=== PATIENT | male | born 1965 | race Caucasian/White ===

== ENCOUNTER → 2016-12-02 06:50 | Day surgery (SDC) | payer OTHER ==
--- NOTE | 2016-11-21 19:30 | HP ---
PREOPERATIVE HISTORY AND PHYSICAL: DATE OF ADMISSION: 12/02/16 [facility] CHIEF COMPLAINT: Right forefoot pain. HISTORY OF PRESENT ILLNESS: Mr. Robledo is a 51-year-old gentleman followed by Dr. Juarez for ongoing pain in his right first MTP joint. He previously underwent cheilectomy by a station baggage porter; however, has had persistent pain in this area. He has also had orthotics and a carbon plate insert for his shoes which did not provide any relief. He is interested in surgical intervention for correction of the problem at this point. PAST MEDICAL HISTORY: Osteoarthritis. PAST SURGICAL HISTORY: Cheilectomy of the right first MTP joint. He reports no complications with anesthesia with that procedure. CURRENT MEDICATIONS: Ibuprofen 600 mg 1 p.o. t.i.d. p.r.n. pain. ALLERGIES: No known drug allergies. FAMILY HISTORY: Osteoarthritis in his mother. Negative for heart disease, diabetes, or cancer. SOCIAL HISTORY: The patient lives with his . He works as a web site project manager. He has never smoked. He occasionally consumes alcohol. He does exercise regularly. REVIEW OF SYSTEMS: Constitutional: Negative for recent hospitalizations, fevers, chills, night sweats, or weight loss. Head: Negative for headaches, lightheadedness, or balance problems. Cardiovascular: Negative for chest or arm pain with exertion, history of heart attack, heart murmur, heart palpitations, high blood pressure, embolism, or deep vein thrombosis. Respiratory: Negative for chronic cough, shortness of breath with exertion, asthma, or COPD. Gastrointestinal: Negative for heartburn, nausea, vomiting, diarrhea, constipation, or GERD. Genitourinary: Negative for nighttime urination, frequency of urination, urinary tract infections, or kidney problems. Musculoskeletal: Negative for chronic or intermittent back pain. Negative for recent fractures. Skin: Negative for rashes, lesions, lumps, or sores. Neurologic: Negative for seizure, stroke, epilepsy, depression, or anxiety. Endocrine: Negative for diabetes or thyroid problems. Hematology: Negative for easy bleeding, bruising, or anemia. PHYSICAL EXAMINATION GENERAL: He is a well-developed, well-nourished pleasant male in no acute distress at rest. He is alert and oriented x3 with appropriate mood and affect. VITAL SIGNS: The patient is 5 feet 7 inches, 184 pounds. Blood pressure 122/78 , pulse 112. HEENT: Normocephalic, atraumatic. Hearing and vision are grossly intact. NECK: His trachea is midline. RESPIRATORY: Lungs clear to auscultation bilaterally. No wheezes, rales, or rhonchi. CARDIOVASCULAR: Regular rate and rhythm. No murmurs, rubs, or gallops. Normal S1, S2. ABDOMEN: Soft, nondistended, nontender. Normal bowel sounds. EXTREMITIES: Exam of the right lower extremity, skin is intact without abrasions or open wounds. There is no edema, ecchymosis, or gross deformity. He is tender to palpation over the dorsal and medial aspect of the first MTP joint. He has very limited passive or active range of motion at this area. Sensation to light touch is intact to all nerve distributions. He has a 2+ dorsalis pedis pulse. IMAGING: AP, lateral, and oblique views of the right foot were reviewed and show end-stage osteoarthritic changes of first MTP joint. There is joint space narrowing; however, there is no osteophyte formation. IMPRESSION: Right foot hallux rigidus. PLAN: The patient is to undergo right first MTP joint fusion by Dr. Juarez on 12/02/16. The risks, benefits, and postoperative course were discussed with the patient at length and he would like to proceed. All of his questions were answered to his full satisfaction. He is understanding to call if he develops any problems or concerns. FREDY CASTRO [id number]/[facility] #: [id number] EL[place]
[~2016-12-02 06:50] MED LIST: Buffered Lidocaine 1% SYRIN* 3 ML/SYR SYRINGE INTRADERM ONE; Bupivacaine 0.5% SDV PF* 30 ML VIAL ONE; Dexamethasone IV* 4 MG/ML 1 ML (4 MG) IV SLOW PU ONE; Dexamethasone IV* 4 MG/ML 1 ML (4 MG) ONE; Famotidine IV* 10 MG/ML 2 ML (20 mg) IV ONE; Famotidine IV* 10 MG/ML 2 ML (20 mg) ONE; Ketorolac INJ* 30 MG/ML 1 ML VIAL ONE; Lidocaine 2% PF* 10 ML AMP ONE; Midazolam* 1 MG/ML 5 ML VIAL (5 MG) ONE; Ondansetron INJ* 2 MG/ML VIAL IV PRN; Ondansetron INJ* 2 MG/ML VIAL ONE; Propofol* 10 MG/ML 20 ML BTL IV PUSH ONE; ceFAZolin 2 GM PREMIX(*) 2 GM/50 ML BAG IVPB ONE; fentaNYL* 50 MCG/ML 2 ML VIAL (100 MCG VIAL) ONE; oxyCODONE/Acetamin 5/325 MG* TAB PO PRN
[2016-12-02 10:29] VITALS: BP 119/84
--- NOTE | 2016-12-03 12:35 | OP ---
DATE OF OPERATION: 12/02/16 - [facility] DATE OF : 65 SURGEON: Philip Juarez MD CORPORATE LOGISTICS MANAGER: Cori White PA-C ANESTHESIOLOGIST: Jorge Wilson MD ANESTHESIA: MAC PRE-OP DIAGNOSIS: Right first metatarsophalangeal joint arthritis. POST-OP DIAGNOSIS: Right first metatarsophalangeal joint arthritis. OPERATIVE PROCEDURE: Right first metatarsophalangeal joint fusion. DESCRIPTION OF PROCEDURE: The patient was taken to the operating room where a longitudinal incision was made over the dorsum of the first MTP joint. Medial and lateral flap was raised to allow visualization of the joint. Peripheral osteophytes were removed and then we prepared the joint for arthrodesis using a small power bur. We pinned the joint in neutral position using an oblique 4.0- mm cannulated screw and then fixed the joint further with a dorsal rigid Y plate , fixed with combination of locking and nonlocking screws. X-rays intraoperatively showed satisfactory position of the fusion with good bone apposition. We irrigated thoroughly closing the capsule with 3-0 Vicryl and 4- 0 nylon for the skin and a compression dressing applied. [id number]/[facility] #: [id number] [facility]
--- NOTE | 2016-12-03 19:32 | RAD ---
CPT II Codes: 6045F INDICATION: Chronic right foot pain TECHNIQUE: Intraoperative fluoroscopy was provided during right foot surgery. FINDINGS: A single spot film depicts a screw and plate and screw fixator spanning the right great toe metatarsal phalangeal joint. Fluoroscopy time: 2.4 seconds IMPRESSION: As above.
== END | disposition home or self-care (01) ==
LOC: OR 06:50
PROVIDERS: ATTEND Orthopaedic Surgery
DX: M19.071 Primary osteoarthritis, right ankle and foot (principal); M20.21 Hallux rigidus, right foot
CPT/HCPCS: 76000; C1713; C1776; J0690; J1100; J1885; J2001; J2250; J2405; J2704; J3010

== ENCOUNTER 2018-02-05 10:12 | Emergency (ER) | payer OTHER ==
--- OUTSIDE RECORDS SUMMARY | 2018-02-05 10:21 | XMS REPORT ---
:1965 External Reference #:[id number] Author Organization [facility] Address [address] [place] [address] Phone [phone] Care Team Providers Name Role Phone Len Blank M.D. Primary Care Physician Unavailable Payers Type Date Identification Numbers Payment Provider Subscriber Commercial Policy Number: [id number] [employer] Ppo/Pos/Epo/Nap Nathan Robledo PayID: [id number] [address] [place] [address] Problems Date Description Provider Status Onset: 01/22/2018 Regular astigmatism Celia Lopez O.D. Active Onset: 01/22/2018 Myopia Celia Lopez O.D. Active Onset: 01/22/2018 Presbyopia Celia Lopez O.D. 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 ETOH Use Consumes 1 beer per day Recreational Drug Use Denies Drug Use Smoking Patient has never smoked Daily Caffeine Consumes on average 2 cups of hot tea per day Allergies, Adverse Reactions, Alerts Date Description Reaction Status Severity Comments 01/22/2018 NKDA active Medications Medication Date Status Form Strength Qnty SIG Indications Ordering Provider Ibuprofen Active Tablets 600mg as needed Unknown Results Description No Information Procedures Description No Information Plan of Care 01/22/2018 - Celia Lopez O.D.H52.223 Regular astigmatism, bilateralComments:Smoking can increase the risk of developing or worsening any eye related disease, as well as affect your overall health. If you are a smoker , we strongly recommend that you quit.If you are not a smoker, we strongly recommend that you do not start. You have an astigmatism. Astigmatism is a common vision condition that happens when a person's cornea is not symmetrical. Dr. Lopez has given you a prescription to correct for this.Follow up:2 Year Follow Up You can expect to have your eyes dilated at your next visit. If Dr. Lopez orders any additional testing, it may require extra time. We recommend that you bring sunglasses, as dilation drops often make you light sensitive until they wear off. We always recommend you bring someone to drive you home if you are uncomfortable driving with your eyes dilated. If you have any questions before your next visit, feel free to call our office at .H52.4 PresbyopiaComments:You have presbyopia. This is when the lens in your eye loses the ability to change focus, and happens as we age. A pair of reading glasses will help you see up close.H52.13 Myopia, bilateralComments:You have Myopia, or near sightedness. I have given you a prescription for glasses.
[2018-02-05 10:29] VITALS: BP 113/74
--- NOTE | 2018-02-05 10:53 | ED ---
Lower Extremity - HPI Summary HPI Summary: 52-year-old male presents with knee injury yesterday. He states he jumped out for volleyball when he came down he felt the pain. His pain is mostly over his right patella. Denies any weakness. denies any popping or locking. He denies any previous injury to the area. It is his right knee that hurts. He has been taking ibuprofen with little relief. Hurts mostly when he ambulates. States that it feels like it is pulling on his patella. Mild edema noted. No other injury. - History of Current Complaint Pain Intensity: 8 <Mamie Norman - Last Filed: 02/05/18 11:50> <Deonna Lee - Last Filed: 02/05/18 13:40> - History of Current Complaint Chief Complaint: UCLowerExtremity Stated Complaint: KNEE INJURY Time Seen by Provider: 02/05/18 10:38 - Allergies/Home Medications Allergies/Adverse Reactions: Allergies Allergy/AdvReac Type Severity Reaction Status Date / Time No Known Allergies Allergy Verified 02/05/18 10:29 PMH/Surg Hx/FS Hx/Imm Hx Endocrine/Hematology History: Denies: Hx Anticoagulant Therapy, Hx Diabetes, Hx Systemic Lupus Erythematosus, Hx Thyroid Disease Cardiovascular History: Denies: Hx Congestive Heart Failure, Hx Deep Vein Thrombosis, Hx Hypertension , Hx Myocardial Infarction, Hx Pacemaker/ICD, Other Cardiovascular Problems/ Disorders Respiratory History: Denies: Hx Asthma, Hx Chronic Obstructive Pulmonary Disease (COPD), Hx Lung Cancer, Hx Pneumonia, Hx Pulmonary Embolism, Other Respiratory Problems/ Disorders GI History: Reports: Other GI Disorders - pelvic cramping ,right flank pain since july no changes bowel or bladde Denies: Hx Gall Bladder Disease, Hx Gastrointestinal Bleed, Hx Ulcer, Hx Urosepsis History: Denies: Hx Dialysis, Hx Kidney Stones, Hx Renal Disease Musculoskeletal History: Reports: Hx Arthritis, Hx Rheumatoid Arthritis - HOSTORY OF ARTHRITIS BUT OESNT BOTHER IN THE KNEES, Other Musculoskeletal History - left shoulder biceps Denies: Hx Osteoporosis Sensory History: Reports: Hx Contacts or Glasses Denies: Hx Hearing Aid Opthamlomology History: Reports: Hx Contacts or Glasses Neurological History: Denies: Hx Dementia, Hx Migraine, Hx Seizures, Hx Transient Ischemic Attacks (TIA), Other Neuro Impairments/Disorders Psychiatric History: Denies: Hx Anxiety, Hx Depression, Hx Panic Disorder, Hx Schizophrenia, Hx Bipolar Disorder - Cancer History Hx Chemotherapy: No - Surgical History Surgery Procedure, Year, and Place: RT FOOT Hallux (GREAT TOE)rigidus surgery [id number] Hx Anesthesia Reactions: No Infectious Disease History: No Infectious Disease History: Denies: Hx Clostridium Difficile, Hx Hepatitis, Hx Human Immunodeficiency Virus (HIV), Hx of Known/Suspected MRSA, Hx Shingles, Hx Tuberculosis, Hx Known/ Suspected VRE, Hx Known/Suspected VRSA, History Other Infectious Disease, Traveled Outside the [place] in Last 30 Days - Family History Known Family History: Positive: None - Social History Alcohol Use: Daily Alcohol Amount: 1 drink per day Substance Use Type: Reports: None Smoking Status (MU): Never Smoked Tobacco <Mamie Norman - Last Filed: 02/05/18 11:50> Review of Systems Negative: Fever Negative: Chest Pain Negative: Shortness Of Breath Positive: Myalgia - right knee pain All Other Systems Reviewed And Are Negative: Yes <Mamie Norman - Last Filed: 02/05/18 11:50> Physical Exam Triage Information Reviewed: Yes Vital Signs On Initial Exam: Initial Vitals Temp Pulse Resp BP Pulse Ox 98 F 68 16 113/74 98 02/05/18 10:02/05/18 10:02/05/18 10:02/05/18 10:02/05/18 10:26 Vital Signs Reviewed: Yes Appearance: Positive: Well-Appearing Skin: Positive: Warm, Dry Head/Face: Positive: Normal Head/Face Inspection Eyes: Positive: Normal, Conjunctiva Clear ENT: Positive: Pharynx normal Respiratory/Lung Sounds: Positive: Clear to Auscultation, Breath Sounds Present Cardiovascular: Positive: Normal, RRR Musculoskeletal: Positive: Strength/ROM Intact - right knee with pain, Edema Right - knee, Other - pos ballotment, neg anterior drawer, neg jacek, good pulses, capillary refill<2 secs <Mamie Norman - Last Filed: 02/05/18 11:50> Vital Signs On Initial Exam: Initial Vitals Temp Pulse Resp BP Pulse Ox 98 F 68 16 113/74 98 02/05/18 10:02/05/18 10:02/05/18 10:26 02/05/18 10:26 02/05/18 10:26 <Deonna Lee - Last Filed: 02/05/18 13:40> Diagnostics - Vital Signs Vital Signs Temp Pulse Resp BP Pulse Ox 02/05/18 10:26 98 F 68 16 113/74 98 - Radiology knee Xray Interpretation: No Acute Changes Radiology Interpretation Completed By: Radiologist <Mamie Norman - Last Filed: 02/05/18 11:50> - Vital Signs Vital Signs Temp Pulse Resp BP Pulse Ox 02/05/18 10:26 98 F 68 16 113/74 98 <Deonna Lee - Last Filed: 02/05/18 13:40> Lower Extremity Course/Dx - Course Course Of Treatment: 52-year-old male presents with knee injury yesterday. He states he jumped out for volleyball when he came down he felt the pain. His pain is mostly over his right patella. Denies any weakness. denies any popping or locking. He denies any previous injury to the area. It is his right knee that hurts. He has been taking ibuprofen with little relief. Hurts mostly when he ambulates. States that it feels like it is pulling on his patella. Mild edema noted. No other injury. On exam positive ballottement. Negative anterior drawer. Negative Jacek's. Neurovascular intact. X-ray normal. We'll treat conservatively. We will have follow-up with orthopedic if no improvement. Patient understands agrees with plan. - Diagnoses Differential Diagnosis/HQI/PQRI: Positive: Fracture (Closed), Sprain, Strain <Mamie Norman - Last Filed: 02/05/18 11:50> <Deonna Lee - Last Filed: 02/05/18 13:40> - Diagnoses Provider Diagnoses: Right knee pain Discharge - Sign-Out/Discharge Documenting (check all that apply): Discharge/Admit/Transfer - Billing Disposition and Condition Condition: GOOD Disposition: Home <Mamie Norman - Last Filed: 02/05/18 11:50> - Billing Disposition and Condition Condition: GOOD Disposition: Home <Deonna Lee - Last Filed: 02/05/18 13:40> - Discharge Plan Condition: Good Disposition: HOME Patient Education Materials: Knee Pain (ED) Referrals: Will Yun MD [Primary Care Provider] - Ganesh Atwood MD [Medical Doctor] - Additional Instructions: Use immobilizer or brace on area Stay off knee as much as possible Ice, elevate, Ibuprofen or Tylenol every 6 hours for pain Follow up with ortho if no improvement Return to ED if develop or any new or worsening symptoms Attestation Statement User Type: Provider - I was available for consult. This patient was seen by the ASHLEY. The patient was not presented to, seen by, or examined by me. -Gloria <Deonna Lee - Last Filed: 02/05/18 13:40>
--- NOTE | 2018-02-05 11:11 | RAD ---
Indication: RIGHT knee pain began yesterday following injury playing volleyball. History of arthritis. Comparison: None. Technique: RIGHT knee: AP, tunnel, lateral, sunrise views. Report: Normal articular alignment and preserved joint spaces. Minimal osteophytosis. Small suprapatellar joint effusion. No cortical disruption or suspicious trabecular irregularity to suggest fracture small despite at the level of the femoral origin of the medial collateral ligament most consistent with sequela of remote injury. Small enthesophyte at the insertion of the patellar tendon at the tibial tuberosity. Unremarkable soft tissue contours. IMPRESSION: 1. Small joint effusion. 2. Minimal Kellgren and Flynn grade 1 osteoarthritis. 3. Probable sequela of remote previous MCL injury.
== END 2018-02-05 11:40 | disposition home or self-care (01) ==
LOC: UCEAST 10:12
DX: M25.561 Pain in right knee (principal); R60.0 Localized edema; X58.XXXA Exposure to other specified factors, initial encounter; Y93.39 Activity, other involving climbing, rappelling and jumping off; Y92.9 Unspecified place or not applicable
CPT/HCPCS: 99212; G0463